=== PATIENT | female | born 1960 | race Caucasian/White ===

== ENCOUNTER 2017-05-26 11:42 | Day surgery (SDC) | payer OTHER ==
[~2017-05-26] VITALS: Ht 165.1 cm; Wt 75.0 kg
[~2017-05-26 11:42] MED LIST: BIFI4CAP PO; CARI350T PO; CHOL200047 PO; DULO60CA42 PO; DULO60CA61 PO; HYDR-3825 PO; KETO10DR4 OP; LIP40 PO; Lactated Ringer's 1,000 ML IV ONE; METO5TAB78 PO; NICO1PAT35 TD; SENN-133 PO; [UNRECOGNIZED DRUG - CODE] PO
[2017-05-26] MEDS ORDERED: fentaNYL-PF 50 mCg/mL 2 mL Inj ONE (11:43)
[2017-05-26] MEDS ORDERED: Propofol 10,000 mCg/mL 20 mL Inj ONE (11:43)
[2017-05-26 12:17] VITALS: BP 115/72; PULSE 83; RESP 16; O2SAT 100
--- NOTE | 2017-05-26 13:18 | PCM.ENDEGD ---
EGD Date of Service: May 26, 2017 Physician Heriberto Dyson MD Pre Procedure Diagnosis: Black stools Post Procedure Dx & Findings: Multiple gastric erosions. Granular mucosa of the duodenal bulb. Procedure Esophagogastroduodenoscopy PROCEDURE IN DETAIL: After proper sedation, Olympus video endoscope was inserted into patient's mouth and esophagus was successfully intubated. Scope introduced esophagus. Esophagus showed normal shiny whitish mucosa consistent with squamous cell component. Z line was intact at 40 cm from the incisors. Scope further advanced to the stomach. In the antrum, patient had multiple less than 1 mm fissure erosions. Sampling multiple biopsies obtained. Cardia fundus body antrum pylorus were all visualized. Retroflexion was done. Stomach was easily inflated and deflatable using air. Scope further advanced to the distal duodenum. Duodenal bulb revealed granular mucosa. Biopsies obtained. Otherwise the rest of the Duodenum revealed normal villous structures with normal appearing folds without any mass ulcer erosion. Impression Multiple gastric superficial erosions Granular mucosa of the duodenal bulb. Recommendation PPI Avoid NSAIDs Presedation Assessment Risks and Benefits Informed consent was obtained from the patient after all risks and benefits including but not limited to drug reaction, infection, pain, bleeding, perforation, as well as alternatives were discussed. Patient monitoring Continuous pulse oximetry, cardiac monitoring, blood pressure monitoring, IV access, and oxygen at 2L per nasal cannula. Complications There were no periprocedural complications identified. Post Procedure Plan Post Procedure Recommendations 1. Restrict activities today. 2. Resume normal activities in the morning. 3. Resume medications. 4. GERD behavioral modification: - Avoid fatty, acidic, spicy, large meals - Do not lie down after meals - Do not eat or drink anything for at least 2 1/2 hours before going to bed at night - Discontinue tobacco and alcohol - Decrease or avoid caffeine - Avoid chocolate and mints - Decrease weight - Avoid aspirin and non steroidal anti-inflammatory agents (NSAID) such as Aleve, Advil, Mobic, Naproxen, Ibuprofen, etc 5. Add proton pump inhibitor. Take 30 minutes before 1st meal of the day. 6. Patient informed of normal post procedure side effects as bloating, drowsiness, blood streaking in the stool 7. If gastric biopsy reveal H.pylori, continue with appropriate treatment 8. If small bowel biopsy reveals celiac, continue with appropriate treatment 9. Please don't hesitate to call me with any questions Heriberto Dyson MD May 26, 2017 13:18
[2017-05-26 13:20] VITALS: BP 102/72; PULSE 68; RESP 16; O2SAT 99
--- NOTE | 2017-05-26 13:20 | PCM.ENDCOL ---
Colonoscopy Date of Service: May 26, 2017 Physician Heriberto Dyson MD Pre Procedure Diagnosis: Screening Post Procedure Dx & Findings: Polyp hemorrhoids diverticula Procedure Colonoscopy PROCEDURE IN DETAIL: Prep adequate Withdrawal time 19 minutes After unremarkable rectal examination the Olympus video colonoscope was inserted patient's anal canal and was advanced to cecum. Landmarks were identified including the ileocecal valve and appendiceal orifice. Scope was withdrawn systematically. Visualized colonic mucosa showed healthy shiny mucosa with normal healthy-appearing vasculature. In the cecum, there was a 1 mm polyp was removed completely using cold forceps. In the ascending colon there was a 1 mm polyp was removed completely using cold forceps. In the rectum, there was a 1 mm polyp which was removed completely using cold forceps. Also in the rectum there was a 3 mm polyp which was removed completely using cold snare. In the sigmoid colon there few diverticuli. In the rectum retroflexion was done which showed hemorrhoids. Anal canal was inspected carefully on the way out and hemorrhoids noted. Impression Polyps 4 status post complete removal Diverticuli Hemorrhoids Recommendation Repeat colonoscopy 3 years Diverticular diet Presedation Assessment Risks and Benefits Informed consent was obtained from the patient after all risks and benefits including but not limited to drug reaction, infection, pain, bleeding, perforation, as well as alternatives were discussed. Patient monitoring Continuous pulse oximetry, cardiac monitoring, blood pressure monitoring, IV access, and oxygen at 2L per nasal cannula. Complications There were no periprocedural complications identified. Post Procedure Plan Post Procedure Recommendations 1. Restrict activities today. 2. Resume normal activities in the morning. 3. Resume medications. 4. Patient informed of normal post procedure side effects as bloating, drowsiness, blood streaking in the stool. 5. average risk CRCS. If colon polyps come back as: -Hyperplastic- can repeat colonoscopy in 10 years -Tubular adenoma- repeat colonoscopy in 5 years -Tubulovillous/villous adenoma- repeat colonoscopy in 3 years -If any dysplasia- return to clinic as soon as possible 6. Please don't hesitate to call me with any questions. Heriberto Dyson MD May 26, 2017 13:20
[2017-05-26 13:30] VITALS: BP 119/77; PULSE 61; RESP 16; O2SAT 99
[2017-05-26 13:40] VITALS: BP 116/73; PULSE 63; RESP 16; O2SAT 100
[2017-05-26 13:50] VITALS: BP 101/70; PULSE 62; RESP 16; O2SAT 99
--- NOTE | 2017-05-26 18:05 | PCM.HPANE ---
Patient Data Date of Service: May 26, 2017 (0700) Surgeon Admitting Provider: Attending Provider:Heriberto Dyson MD Primary Care Physician:Karla Crespo DO Other Provider:Janell George Anesthesia Reason for Visit Chronic Constipation Ht/WT & BMI Height (Feet): 5 Height (Inches): 5 Weight (Kilograms): 75 Body Mass Index 27.00 Allergies Coded Allergies: cefprozil (Verified Allergy, Intermediate, RASH/ ANXIETY, 05/26/17) erythromycin base (Verified Allergy, Unknown, 05/26/17) gluten (Verified Allergy, Unknown, 05/26/17) Uncoded Allergies: STEARATE (Allergy, Unknown, 08/06/14) Past Anesthesia History Anesthesia History: Denies:: Abnormal Airway, Anesthesia Reactions, Difficult Intubation, Fam Anesthesia Reaction, Fam Malignant Hypertherm, Malignant Hyperthermia Diabetes History Hx Diabetes?: No MRSA MRSA: No Medications Reported Medications Sennosides (Senna)8.6 Mg Fxvrsg97.2 Mg PO DAILY PRN For Constipation 05/25/17 Nicotine (Nicoderm Cq 21 mg/24 hr)1 Each Patch.td241 Each TD DAILY #14 PATCH Ref 0 05/25/17 Hydrocodone-Acetaminophen 7.5-325 mg 1 Each Tablet1 Tablet PO TID PRN For Pain Ref 0 05/25/17 Duloxetine (Cymbalta)60 Mg Capsule.dr60 Mg PO DAILY Ref 0 05/25/17 Bifidobacterium Infantis (Align)4 Mg Capsule4 Mg PO DAILY 05/25/17 Carisoprodol (Soma)350 Mg Elbeus895 Mg PO BID 08/06/14 Nicotine (Nicoderm Cq 21 mg/24 hr)1 Each Patch.td241 Each TD DAILY #14 PATCH Ref 0 08/06/14 Discontinued Reported Medications Cholecalciferol (Vitamin D3) (Vitamin D3)2,000 Unit Capsule2,000 Unit PO DAILY 05/25/17 Lactose-Free Food (Complete Nutritional)237 Ml Juaitb154 Ml PO 05/25/17 Atorvastatin (Lipitor)40 Mg Zvuhce57 Mg PO DAILY Ref 0 05/25/17 Hydrocodone-Acetaminophen 7.5-325 mg 1 Each Tablet1-2 Each PO Q6H PRN For Pain Ref 0 08/06/14 Duloxetine 60 Mg Capsule.dr60 Mg PO DAILY 30 Days Ref 0 08/06/14 Ketotifen Fumarate (Alaway)10 Ml Drops10 Ml OP 08/06/14 Metoclopramide (Reglan)5 Mg Tablet5 Mg PO QID PRN For Nausea Ref 0 08/06/14 History History of ENT Problems?: No HEENT History: Denies:: Abnormal Airway Difficult Intubation Dysphagia Hearing Problem Denture Type: Full- Upper Partial- Lower Teeth Condition: Within Normal Limits Hx of Heart Problems?: No Cardiovascular History: Denies:: AICD Abdominal Aortic Aneurism Atrial Fibrillation Cardiac Surgery Chest Pain Congestive Heart Failure Coronary Artery Disease Edema Heart Murmur Hypertension Irregular Heartbeat Pacemaker Peripheral Vascular Rheumatic Fever Thrombophlebitis Valvular Heart Disease Hx of Respiratory Problem?: No Respiratory History: Denies:: Asthma COPD Cough Hemoptysis Pneumonia Tuberculosis Hx Neurologic Problems?: No Neurological History: Denies:: CVA Hx of GI Problems?: No Hx of Problems?: No Female Hx: Denies:: Currently (TUBAL LIGATION) Hx Musculoskeletal Problems?: No Musculoskeletal History: Positive for:: Fibromyalgia Denies:: Joint Replacement Psycho Social History: Positive for:: Anxiety Hx Depression Hx Surgeries?: Yes (TUBAL, ELBOW, WRIST, KNEE, TONSILS) Hx Any Other Health Problems?: Yes Hx Diabetes: No Hx Alcohol Use: No Stop/Bang Treated for Sleep Apnea?: No Do You Have a CPAP Machine?: No S-Snoring: Do You Snore Loudly: No T-Tired: feel tired, fatigued: No O-Obsered: Observed not breath: No P-Blood Pressure: treated: No B- Body Mass Index > 35 kg/m2: No A- Age over 50: Yes N- Neck Large Circumference: No G- Gender Male: No FABIO Total Score: 1 Risk Assessment Category Category 1A: Patient has history of documented sleep apnea, and HAS NOT received any narcotic, sedative or anesthesia administration during this stay. Category 1B: Patient has history of documented sleep apnea, and HAS received any narcotic , sedative or anesthesia administration during this stay Category 2: Patient has SUSPECTED Obstructive Sleep Apnea, and HAS received any narcotic , sedative or anesthesia administration during this stay. Category 3: Patient has SUSPECTED Obstructive Sleep Apnea and HAS NOT received narcotic, sedative or anesthesia administration during this stay. Category 4: Outpatient in Procedural Areas with known sleep apnea or who screen positive for High Risk via the STOP/BANG questionnaire. Exam Exam Vital Signs Vital Signs Date Time Temp Pulse Resp B/P Pulse Ox O2 Delivery O2 Flow Rate FiO2 05/26/17 13:50 62 16 101/70 99 Room Air 05/26/17 13:40 63 16 116/73 100 Room Air 05/26/17 13:30 61 16 119/77 99 Room Air 05/26/17 13:20 68 16 102/72 99 Room Air 05/26/17 12:17 37.0 83 16 115/72 100 Room Air General Appearance: Alert, Oriented X3, Cooperative, No Acute Distress HEENT/AIRWAY: MP 2 Lungs: Clear to Auscultation Heart: Exam Unremarkable Meds/Labs/Diagnostics Admission Meds Current Medications Lactated Ringer's (Lr) 1,000 ml @ 10 mls/hr Q24H ONCE IV Last administered on 05/26/17t 12:58; Start 05/26/17 at 06:00; Stop 05/27/17 at 05:59 Plan Impression Patient chart reviewed, patient interviewed and anesthestic plan with risks, benefits, and alternatives discussed, and informed consent obtained. ASA Physical Status: ASA2 Mod Systemic Disease Anesthetic Plan: MAC Bene/Risks/Altern/Consents: Yes HP Complete Prior to Induction: Yes Jaswinder Shook MD May 26, 2017 18:05
--- NOTE | 2017-05-31 11:36 | PATH ---
SURGICAL PATHOLOGY Attending Physician:Heriberto Dyson M.D. CASE STATUS: Signed Out PATIENT NAME: ANABEL RESENDIZ PID: [id number] : 1960 DATE COLLECTED:05/26/2017 00:00 SPECIMEN: 1: Duodenum, Biopsy 2: Gastric, Biopsy 3: Esophagus, Biopsy 4: Colon, Polyp 5: Colon, Polyp 6: Rectum, Biopsy CLINICAL HISTORY: 1). DUODENAL BIOPSY 2). GASTRIC EROSION BIOPSY (RULE OUT H.PYLORI) 3). DISTAL ESOPHAGUS BIOPSY 4). CECAL POLYP X1 5). ASCENDING POLYP X1 6). RECTAL POLYP X2 FINAL DIAGNOSIS: 1.DUODENAL BIOPSY: FRAGMENTS OF NORMAL-APPEARING DUODENAL MUCOSA. Normal delicate mucosal villi present. Negative for significant inflammation, dysplasia and malignancy. 2.GASTRIC EROSION BIOPSY: DIFFUSE MILD CHRONIC GASTRITIS INVOLVING ANTRAL MUCOSA. Immunohistochemistry for Helicobacter pending, to be reported by addendum. Negative for dysplasia and malignancy. 3.DISTAL ESOPHAGUS BIOPSY: FRAGMENTS OF GASTRIC CARDIA-TYPE MUCOSA, CHRONICALLY INFLAMED WITH NO SQUAMOUS MUCOSA PRESENT. Negative for specialized metaplasia of Crespo' s-type esophagus. Negative for dysplasia and malignancy. 4.CECAL POLYP: TUBULAR ADENOMA. 5.ASCENDING COLON POLYP: CHANGES CONSISTENT WITH MINISCULE TUBULAR ADENOMA. 6.RECTAL POLYP: TUBULAR ADENOMA INVOLVING BOTH BIOPSY FRAGMENTS. ICD10 D12.0 GROSS DESCRIPTION: The specimen is received in six formalin filled containers labeled with the patient's name. 1). The specimen is labeled "duodenal" and consists of 2 portions of tissue which aggregate to 0.4 x 0.4 x 0.2 CM. The specimen is entirely submitted in a cassette 1A. 2). The specimen is labeled "gastric erosions" and consists of 3 portions of tissue which aggregate to 0.3 x 0.3 x 0.2 CM. The specimen is entirely submitted in cassette 2A. 3). The specimen is labeled "distal as June" and consists of a 0.2-0.2 x 0.2 CM portion of tissue which is entirely submitted in cassette 3A. 4). The specimen is labeled "cecal polyp" and consists of a 0.3 x 0.3 x 0.3 CM portion of tissue which is entirely submitted in cassette 4A. 5). The specimen is labeled "ascending polyp" and consists of a 0.2 x 0.2 x 0.1 CM portion of tissue which is entirely submitted in cassette 5A. 6). The specimen is labeled "rectal polyp x2" and consists of 2 portions of tissue which aggregate to 0.3 x 0.3 x 0.2 CM. The specimen is entirely submitted in cassette 6A. 05/27/2017DC MICRO DESCRIPTION: See diagnosis. ICD-9 CODES: CPT CODES: 1: 04058 2: 84803, 71938 3: 16499 4: 22837 5: 26428 6: 49890 Electronically Signed Out Santiago Lee MD [facility] [address], [place] [address] Technical component performed at [facility], [address], [place], [address]
== END 2017-05-26 23:59 | disposition home or self-care (01) ==
LOC: END 11:42
PROVIDERS: ATTEND Internal Medicine
DX: Z12.11 Encounter for screening for malignant neoplasm of colon (principal); D12.0 Benign neoplasm of cecum; D12.2 Benign neoplasm of ascending colon; D12.8 Benign neoplasm of rectum; K57.30 Diverticulosis of large intestine without perforation or abscess without bleeding; K64.8 Other hemorrhoids; K29.50 Unspecified chronic gastritis without bleeding; F41.8 Other specified anxiety disorders; E78.00 Pure hypercholesterolemia, unspecified
CPT/HCPCS: 43239; 45380; 45385; J3010; J7120